=== PATIENT | male | born 1970 | race Caucasian/White ===

== ENCOUNTER 2017-07-19 21:30 | Inpatient (IN) | payer OTHER ==
[~2017-07-19] VITALS: Ht 167.6 cm; Wt 102.5 kg
[2017-07-19] MEDS ORDERED: ONDANSETRON INJ 2 MG/ML 2 ML VIAL IV STA (21:59)
[2017-07-19] MEDS ORDERED: MoRPHine SULFATE 4 MG/ML 1 ML CARP\\VIAL IV STA (21:59)
[2017-07-19 22:13] LABS: BASO % 0.2 %; BASO ABS # 0.03 K/uL (0-0.2); EOS % 0.9 %; EOS ABS # 0.12 K/uL (0-0.5); HEMOGLOBIN 15.1 g/dL (14.0-18.0); IG# 0.04 K/uL (0.00-0.02); LYMPH % 23.4 %; LYMPH ABS # 3.21 K/uL (1.2-3.4); MEAN CELL VOLUME 87.4 fL (80-100); MEAN CORPUSCULAR HEMOGLOBIN 30.7 pg (25-34); MEAN CORPUSCULAR HGB CONC 35.1 g/dl (32-36); MEAN PLATELET VOLUME 10.9 fL (7.4-10.4); MONO % 7.5 %; MONO ABS # 1.02 K/uL (0.11-0.59); NEUT % 67.7 %; NEUT ABS # 9.27 K/uL (1.4-6.5); PLATELET COUNT 216 K/uL (130-400); RED CELL DISTRIBUTION WIDTH CV 12.5 % (11.5-14.5); RED CELL DISTRIBUTION WIDTH SD 39.8 fL (36.4-46.3); WHITE BLOOD COUNT 13.69 K/uL (4.8-10.8)
[2017-07-19 22:30] LABS: CALCIUM 9.2 mg/dl (8.5-10.1); CREATININE 1.53 mg/dl (0.60-1.40); POTASSIUM 3.9 mmol/L (3.5-5.1)
--- NOTE | 2017-07-19 22:42 | DIAGNOSTIC IMAGING REPORT ---
CT OF THE ABDOMEN AND PELVIS WITHOUT CONTRAST, STONE PROTOCOL CLINICAL HISTORY: Left flank pain. COMPARISON STUDY: None. TECHNIQUE: Helical axial images of the abdomen and pelvis were obtained without IV or oral contrast according to renal stone protocol. A dose lowering technique was utilized adhering to the principles of ALARA. FINDINGS: An 8 mm x 5 mm left ureteropelvic junction calculus results in moderate left hydronephrosis. There is mild perinephric and periureteral infiltration. Bilateral renal lesions are suboptimally assessed on this unenhanced exam but measure near water attenuation which favors cysts. No additional urinary calculi are identified. Low attenuation bilateral adrenal nodules represent adenomas. A few subcentimeter hypodense right hepatic lobe lesions likely reflect cysts. The spleen and pancreas are normal. There is no evidence for a bowel obstruction. The appendix is normal. There is no lymphadenopathy. Pelvic calcifications reflect phleboliths. IMPRESSION: 1. 8 mm x 5 mm left ureteropelvic junction calculus which results in moderate left hydronephrosis and mild perinephric infiltration. 2. Bilateral renal lesions which are suboptimally assessed on this unenhanced exam but measure near water attenuation which favors cysts. 3. Bilateral adrenal adenomas. Electronically signed by: Alexandre Dao M.D. 07/19/2017 10:40 PM Dictated Date/Time: 07/19/2017 10:33 PM
[2017-07-19] MEDS ORDERED: SODIUM CHLORIDE 0.9% 1000ML 1,000 ML IV STA (22:54)
[2017-07-19] MEDS ORDERED: KETOROLAC TROMETHAMINE 30 MG/ML VIAL IV STA (22:54)
[2017-07-19] MEDS ORDERED: LISI-725 PO (23:07)
[2017-07-19] MEDS ORDERED: CYAN100020 PO (23:07)
[2017-07-19] MEDS ORDERED: ATOR-22 PO (23:07)
[2017-07-19] MEDS ORDERED: ASCO10003 PO (23:07)
[2017-07-19] MEDS ORDERED: ASPI81TA28 PO (23:07)
--- NOTE | 2017-07-20 00:21 | History and Physical ---
History & Physical Date & Time of Service: Jul 20, 2017 at 00:21 Chief Complaint: Back Pain L Side Thinks Kidney Primary Care Physician: Kali Pabon PA-C History of Present Illness Source: patient, family Patient is a 46-year-old male with past medical history of hypertension, hyperlipidemia, former tobacco use and other problems presents with history of sudden onset of left flank pain which started at 8:30 PM today. He reports left flank pain is radiating to the left lower quadrant, sharp to crampy in nature, 9/10 intensity, associated with chills, 2 episodes of non bloody nausea and vomiting since this morning. Denies any aggravating and relieving factors. Patient also noticed cola colored urine 2 days ago which improved with increased water intake. Denies any history of kidney stones in the past. He also noticed decreased urinary stream and increased urinary frequency since yesterday. Denies any history of chest pain, SOB, dizziness, pedal edema, cough , fever, headache, blood in stools, diarrhea, dysuria. Past Medical/Surgical History Medical Problems: (1) High cholesterol (2) Hypertension (3) Renal colic Family History FH: peptic ulcer disease FATHER Kidney disease MOTHER Kidney stones MOTHER Thromboembolic disease MOTHER Reviewed as above Social History Smoking Status: Former Smoker Alcohol Use: none Drug Use: none Allergies Coded Allergies: No Known Allergies (Unverified , 07/20/17) Home Medications Scheduled Ascorbic Acid (Vitamin C), 1,000 MG PO DAILY Aspirin (Aspirin Ec), 81 MG PO DAILY Atorvastatin (Lipitor), 20 MG PO DAILY Cyanocobalamin (Vitamin B12), 1,000 MCG PO DAILY Lisinopril (Zestril), 20 MG PO BID Review of Systems See HPI for pertinent positives & negatives. A total of 10 systems reviewed and were otherwise negative. Physical Exam Vital Signs Date Time Temp Pulse Resp B/P (MAP) Pulse Ox O2 Delivery O2 Flow Rate FiO2 07/20/17 00:16 87 18 151/90 97 Room Air 07/19/17 23:08 56 18 172/94 97 Room Air 07/19/17 22:50 55 07/19/17 21:49 36.4 58 18 154/65 97 Room Air General Appearance: WD/WN, no apparent distress Head: normocephalic, atraumatic Eyes: normal inspection, PERRL, EOMI, sclerae normal ENT: normal ENT inspection, hearing grossly normal Neck: supple, trachea midline Respiratory/Chest: chest non-tender, lungs clear, normal breath sounds, no respiratory distress, no accessory muscle use Cardiovascular: regular rate, rhythm, no edema, no murmur Abdomen/GI: normal bowel sounds, soft, + tenderness (Left flank and LLQ) Back: normal inspection Extremities/Musculoskelatal: normal inspection, no pedal edema Neurologic/Psych: window draper II-XII nml as tested, no motor/sensory deficits, alert, normal mood/affect, oriented x 3 Skin: normal color, warm/dry Diagnostics Laboratory Results Results Past 24 Hours Test 07/19/17 22:02 07/19/17 23:05 Range/Units White Blood Count 13.69 4.8-10.8 K/uL Red Blood Count 4.92 4.7-6.1 M/uL Hemoglobin 15.1 14.0-18.0 g/dL Hematocrit 43.0 42-52 % Mean Corpuscular Volume 87.4 80-100 fL Mean Corpuscular Hemoglobin 30.7 25-34 pg Mean Corpuscular Hemoglobin Concent 35.1 32-36 g/dl Platelet Count 216 130-400 K/uL Mean Platelet Volume 10.9 7.4-10.4 fL Neutrophils (%) (Auto) 67.7 % Lymphocytes (%) (Auto) 23.4 % Monocytes (%) (Auto) 7.5 % Eosinophils (%) (Auto) 0.9 % Basophils (%) (Auto) 0.2 % Neutrophils # (Auto) 9.27 1.4-6.5 K/uL Lymphocytes # (Auto) 3.21 1.2-3.4 K/uL Monocytes # (Auto) 1.02 0.11-0.59 K/uL Eosinophils # (Auto) 0.12 0-0.5 K/uL Basophils # (Auto) 0.03 0-0.2 K/uL RDW Standard Deviation 39.8 36.4-46.3 fL RDW Coefficient of Variation 12.5 11.5-14.5 % Immature Granulocyte % (Auto) 0.3 % Immature Granulocyte # (Auto) 0.04 0.00-0.02 K/uL Sodium Level 136 136-145 mmol/L Potassium Level 3.9 3.5-5.1 mmol/L Chloride Level 104 98-107 mmol/L Carbon Dioxide Level 26 21-32 mmol/L Anion Gap 6.0 3-11 mmol/L Blood Urea Nitrogen 19 7-18 mg/dl Creatinine 1.53 0.60-1.40 mg/dl Est Creatinine Clear Calc Drug Dose 51.4 ml/min Estimated GFR () 62.7 Estimated GFR (Non- 54.1 BUN/Creatinine Ratio 12.1 10-20 Random Glucose 224 70-99 mg/dl Calcium Level 9.2 8.5-10.1 mg/dl Total Bilirubin 0.4 0.2-1 mg/dl Direct Bilirubin 0.1 0-0.2 mg/dl Aspartate Amino Transf (AST/SGOT) 35 15-37 U/L Alanine Aminotransferase (ALT/SGPT) 78 12-78 U/L Alkaline Phosphatase 98 45-117 U/L Total Protein 8.0 6.4-8.2 gm/dl Albumin 4.0 3.4-5.0 gm/dl Lipase 108 73-393 U/L Urine Color YELLOW Urine Appearance TURBID CLEAR Urine pH 5.0 4.5-7.5 Urine Specific [place] 1.033 1.000-1.030 Urine Protein TRACE NEG Urine Glucose (UA) NEG NEG Urine Ketones NEG NEG Urine Occult Blood 3+ NEG Urine Nitrite NEG NEG Urine Bilirubin NEG NEG Urine Urobilinogen NEG NEG Urine Leukocyte Esterase NEG NEG Urine WBC (Auto) 1-5 0-5 /hpf Urine RBC (Auto) 10-30 0-4 /hpf Urine Hyaline Casts (Auto) 1-5 0-5 /lpf Urine Epithelial Cells (Auto) 0-5 0-5 /lpf Urine Bacteria (Auto) NEG NEG Urine Crystals CALCIUM OXALATE NONE PRSENT Urine Mucus PRESENT NONE PRSENT Urine Yeast (Auto) NONE PRSENT Diagnostic Radiology CT ABD: 1. 8 mm x 5 mm left ureteropelvic junction calculus which results in moderate left hydronephrosis and mild perinephric infiltration. 2. Bilateral renal lesions which are suboptimally assessed on this unenhanced exam but measure near water attenuation which favors cysts. 3. Bilateral adrenal adenomas. Impression Assessment and Plan Renal Colic: Obstructive Uropathy: CT abdomen showed: 8 mm x 5 mm left ureteropelvic junction calculus which results in moderate left hydronephrosis and mild perinephric infiltration. No signs of Sepsis IV fluids Start on Flomax Urology consulted Strain Urine NPO for possible intervention Pain control MARIO: secondary to above No known kidney disease Unknown baseline Creatinine Cr:1.53 Hold lisinopril Monitor renal function Avoid nephrotoxic agents Bilateral renal lesions: likely cysts. Bilateral adrenal adenomas Incidental findings on CT scan Work up as outpatient Elevated Glucose levels No known H/O diabetes Check A1C Started on ISS for now monitor blood glucose levels Hypertension: Elevated likely situational Hold lisinopril secondary to MARIO started on amlodipine Hyperlipidemia: continue statins DVT Px: SCDs Code Status: Full Code Resuscitation Status VTE Prophylaxis Will order VTE Prophylaxis: Yes
[2017-07-20] MEDS ORDERED: TAMSULOSIN HCL 0.4 MG CAP PO STA (00:29)
[2017-07-20] MEDS ORDERED: GLUCAGON FOR INJ 1 MG VIAL SQ PRN (00:30)
[2017-07-20] MEDS ORDERED: GLUCOSE 40% GEL 15 GM TUBE PO PRN (00:30)
[2017-07-20] MEDS ORDERED: DEXTROSE 50% 50 ML SYR IV PRN (00:30)
[2017-07-20] MEDS ORDERED: GLUCOSE 10 TABS/TUBE PO PRN (00:30)
[2017-07-20] MEDS ORDERED: ACETAMINOPHEN 325 MG TAB PO PRN (00:30)
[2017-07-20] MEDS ORDERED: MoRPHine SULFATE 2 MG/ML CARP IV PRN (00:30)
[2017-07-20] MEDS ORDERED: ONDANSETRON INJ 2 MG/ML 2 ML VIAL IV PRN ×2 (00:30→10:45)
--- NOTE | 2017-07-20 01:10 | EMERGENCY ROOM VISIT NOTE ---
History Report prepared by Charity: Lauren Quintanilla Under the Supervision of: Dr. Avrind Blanchard M.D. First contact with patient: 21:56 Chief Complaint: FLANK PAIN Stated Complaint: BACK PAIN L SIDE THINKS KIDNEY History of Present Illness The patient is a 46 year old male who presents to the Emergency Room with complaints of persistent left flank pain starting 2029. The pain started suddenly. He describes it as sharp. He is having trouble getting comfortable. The pain does not worsen with movement. He is vomiting and diaphoretic. He notes that he had some dark urine like cola 2 days ago. He has a family history of kidney stone. He has a history of hypertension and high cholesterol. Source of History: patient Onset: 2029 Position: other (left flank) Quality: sharp Timing: other (persistent) Associated Symptoms: + diaphoresis, + vomiting, + urinary symptoms Review of Systems See HPI for pertinent positives & negatives. A total of 10 systems reviewed and were otherwise negative. Past Medical & Surgical Medical Problems: (1) High cholesterol (2) Hypertension Family History Kidney stones Social History Smoking Status: Former Smoker Marital Status: Housing Status: lives with family Occupation Status: employed Current/Historical Medications Scheduled Ascorbic Acid (Vitamin C), 1,000 MG PO DAILY Aspirin (Aspirin Ec), 81 MG PO DAILY Atorvastatin (Lipitor), 20 MG PO DAILY Cyanocobalamin (Vitamin B12), 1,000 MCG PO DAILY Lisinopril (Zestril), 20 MG PO BID Allergies Coded Allergies: No Known Allergies (Unverified , 07/20/17) Physical Exam Vital Signs Date Time Temp Pulse Resp B/P (MAP) Pulse Ox O2 Delivery O2 Flow Rate FiO2 07/20/17 00:16 87 18 151/90 97 Room Air 07/19/17 23:08 56 18 172/94 97 Room Air 07/19/17 22:50 55 07/19/17 21:49 36.4 58 18 154/65 97 Room Air Physical Exam The patient appears in obvious discomfort. Constitutional: Vital signs reviewed. Eyes: Pupils are equal round reactive to light. Conjunctiva are noninjected. ENT: Pharynx is clear without erythema or exudate. Mucous membranes are moist. Neck supple without meningeal signs. Respiratory: Clear to auscultation bilaterally. Breath sounds are equal bilaterally. Cardiovascular: Regular rate and rhythm. No rubs or gallops. GI: Soft, nondistended and nontender. Bowel sounds are present. Musculoskeletal: No peripheral edema. Integumentary: Diaphoretic. No cyanosis. Neurological: The patient is awake and alert. No focal deficits. Psychiatric: Normal affect. Medical Decision & Procedures ER Provider Diagnostic Interpretation: Radiology results as stated below per my review and the radiologist's interpretation: CT OF THE ABDOMEN AND PELVIS WITHOUT CONTRAST, STONE PROTOCOL CLINICAL HISTORY: Left flank pain. COMPARISON STUDY: None. TECHNIQUE: Helical axial images of the abdomen and pelvis were obtained without IV or oral contrast according to renal stone protocol. A dose lowering technique was utilized adhering to the principles of ALARA. FINDINGS: An 8 mm x 5 mm left ureteropelvic junction calculus results in moderate left hydronephrosis. There is mild perinephric and periureteral infiltration. Bilateral renal lesions are suboptimally assessed on this unenhanced exam but measure near water attenuation which favors cysts. No additional urinary calculi are identified. Low attenuation bilateral adrenal nodules represent adenomas. A few subcentimeter hypodense right hepatic lobe lesions likely reflect cysts. The spleen and pancreas are normal. There is no evidence for a bowel obstruction. The appendix is normal. There is no lymphadenopathy. Pelvic calcifications reflect phleboliths. IMPRESSION: 1. 8 mm x 5 mm left ureteropelvic junction calculus which results in moderate left hydronephrosis and mild perinephric infiltration. 2. Bilateral renal lesions which are suboptimally assessed on this unenhanced exam but measure near water attenuation which favors cysts. 3. Bilateral adrenal adenomas. Electronically signed by: Alexandre Dao M.D. 07/19/2017 10:40 PM Dictated Date/Time: 07/19/2017 10:33 PM Laboratory Results 07/19/17 22:02 Red Blood Count 4.92, Mean Corpuscular Volume 87.4, Mean Corpuscular Hemoglobin 30.7, Mean Corpuscular Hemoglobin Concent 35.1, Mean Platelet Volume 10.9, Neutrophils (%) (Auto) 67.7, Lymphocytes (%) (Auto) 23.4, Monocytes (%) (Auto) 7.5, Eosinophils (%) (Auto) 0.9, Basophils (%) (Auto) 0.2, Neutrophils # (Auto) 9.27, Lymphocytes # (Auto) 3.21, Monocytes # (Auto) 1.02, Eosinophils # (Auto) 0.12, Basophils # (Auto) 0.03 07/19/17 22:02 Test 07/19/17 22:02 07/19/17 23:05 White Blood Count 13.69 K/uL (4.8-10.8) Red Blood Count 4.92 M/uL (4.7-6.1) Hemoglobin 15.1 g/dL (14.0-18.0) Hematocrit 43.0 % (42-52) Mean Corpuscular Volume 87.4 fL (80-100) Mean Corpuscular Hemoglobin 30.7 pg (25-34) Mean Corpuscular Hemoglobin Concent 35.1 g/dl (32-36) Platelet Count 216 K/uL (130-400) Mean Platelet Volume 10.9 fL (7.4-10.4) Neutrophils (%) (Auto) 67.7 % Lymphocytes (%) (Auto) 23.4 % Monocytes (%) (Auto) 7.5 % Eosinophils (%) (Auto) 0.9 % Basophils (%) (Auto) 0.2 % Neutrophils # (Auto) 9.27 K/uL (1.4-6.5) Lymphocytes # (Auto) 3.21 K/uL (1.2-3.4) Monocytes # (Auto) 1.02 K/uL (0.11-0.59) Eosinophils # (Auto) 0.12 K/uL (0-0.5) Basophils # (Auto) 0.03 K/uL (0-0.2) RDW Standard Deviation 39.8 fL (36.4-46.3) RDW Coefficient of Variation 12.5 % (11.5-14.5) Immature Granulocyte % (Auto) 0.3 % Immature Granulocyte # (Auto) 0.04 K/uL (0.00-0.02) Anion Gap 6.0 mmol/L (3-11) Est Creatinine Clear Calc Drug Dose 51.4 ml/min Estimated GFR () 62.7 Estimated GFR (Non- 54.1 BUN/Creatinine Ratio 12.1 (10-20) Calcium Level 9.2 mg/dl (8.5-10.1) Total Bilirubin 0.4 mg/dl (0.2-1) Direct Bilirubin 0.1 mg/dl (0-0.2) Aspartate Amino Transf (AST/SGOT) 35 U/L (15-37) Alanine Aminotransferase (ALT/SGPT) 78 U/L (12-78) Alkaline Phosphatase 98 U/L (45-117) Total Protein 8.0 gm/dl (6.4-8.2) Albumin 4.0 gm/dl (3.4-5.0) Lipase 108 U/L (73-393) Urine Color YELLOW Urine Appearance TURBID (CLEAR) Urine pH 5.0 (4.5-7.5) Urine Specific [place] 1.033 (1.000-1.030) Urine Protein TRACE (NEG) Urine Glucose (UA) NEG (NEG) Urine Ketones NEG (NEG) Urine Occult Blood 3+ (NEG) Urine Nitrite NEG (NEG) Urine Bilirubin NEG (NEG) Urine Urobilinogen NEG (NEG) Urine Leukocyte Esterase NEG (NEG) Urine WBC (Auto) 1-5 /hpf (0-5) Urine RBC (Auto) 10-30 /hpf (0-4) Urine Hyaline Casts (Auto) 1-5 /lpf (0-5) Urine Epithelial Cells (Auto) 0-5 /lpf (0-5) Urine Bacteria (Auto) NEG (NEG) Urine Crystals CALCIUM OXALATE (NONE Urine Mucus PRESENT (NONE PRSENT) Urine Yeast (Auto) (NONE PRSENT) Laboratory results as reviewed by me. Medications Administered Medications (Trade) Dose Ordered Sig/Evaristo Route Start Time Stop Time Status Last Admin Dose Admin Morphine Sulfate (MoRPHine SULFATE INJ) 4 mg ONE STAT IV 07/19/17 21:59 07/19/17 22:00 DC 07/19/17 22:12 4 MG Ondansetron HCl (Zofran Inj) 4 mg NOW STAT IV 07/19/17 21:59 07/19/17 22:00 DC 07/19/17 22:11 4 MG Ketorolac Tromethamine (Toradol Inj) 10 mg NOW STAT IV 07/19/17 22:54 07/19/17 22:56 DC 07/19/17 23:08 10 MG Sodium Chloride 1,000 ml @ 999 mls/hr Q1H1M STAT IV 07/19/17 22:54 07/19/17 23:54 DC 07/19/17 23:07 999 MLS/HR ED Course 1287: The patient was evaluated in room A2. A complete history and physical exam was performed. 2158: Zofran Inj 4 mg IV, Morphine Sulfate 4 mg IV. 4: Sodium Chloride 1000 ml @ 999 mls/hr IV, Toradol Inj 10 mg IV. 2251: I reevaluated the patient. He is still having pain. I updated him on the test results. 2335: I reevaluated the patient. He is still having pain. I updated him on the results. After further discussion, the patient will stay for pain control and further management. 2343: I discussed the patient's case with Dr. Newman, [facility] hospitalist. He will evaluate the patient for further management. Medical Decision This is a 46-year-old male who presents with left flank pain. Differential diagnosis includes kidney stone, hydronephrosis, UTI, strain, diverticulitis, pancreatitis. I did perform a limited focused review of portions of the patient 's old chart on the electronic medical record. The patient has had no prior visits to this hospital. I did evaluate the patient as noted above. IV access was established. I did treat patient with IV morphine and Zofran. I did order and personally review the patient's urine analysis as described above. I did order and review the patient's blood work as noted in the electronic medical record. His white blood cell count is slightly elevated. Creatinine is slightly elevated. I did treat the patient with normal saline IV. I did order a CT of the abdomen and pelvis. I did review the images myself as well as the radiology report as described above. He does have an 8 x 5 mm obstructive left ureteral stone with hydronephrosis. I did discuss the test results with the patient. I did reassess him. He states that he still has continued pain. He was reluctant to have more narcotics at this time so I did treat him with Toradol 10 mg IV. On reassessment he states he does feel somewhat better but still has the pain. Given the size of his stone and his continued pain I did feel hospitalization was indicated. I did discuss the case with the hospitalist and home health care case manager. I did forget to mention the incidental findings regarding his adrenal glands and kidney cysts with him and so I did ask the hospitalist to discuss this with him. Medication Reconcilliation Current Medication List: was personally reviewed by me Blood Pressure Screening Patient's blood pressure: Elevated blood pressure Blood pressure disposition: Referred to PCP Consults Time Called: [phone] [facility]ing [facility] Returned Call: [phone] I discussed the patient's case with him. He will evaluate the patient for further management. Impression Primary Impression: Renal colic Additional Impression: Obstructive uropathy Scribe Attestation The scribe's documentation has been prepared under my direct and personally reviewed by me in its entirety. I confirm that the note above accurately reflects all work, treatment, procedures, and medical decision making performed by me. Departure Information Dispostion Being Evaluated By Hospitalist Referrals Kali Pabon PA-C (PCP) Patient Instructions My [facility] Problem Qualifiers
[2017-07-20] MEDS ORDERED: SODIUM CHLORIDE 0.9% 1000ML 1,000 ML IV SCH (02:15)
[2017-07-20 02:27] VITALS: BP 119/75; PULSE 92; TEMP 37.3; O2SAT 92; Ht 167.6 cm; Wt 102.5 kg
[2017-07-20] MEDS ORDERED: NURSING DECISION MEDICATION ORDER SCH (03:00)
[2017-07-20] MEDS: INSULIN ASPART 100 UNITS/ML 3 ML PEN SC SCH ×2 (05:38→12:00)
[2017-07-20] MEDS ORDERED: INSULIN ASPART 100 UNITS/ML 3 ML PEN SC SCH (07:00)
[2017-07-20 07:08] VITALS: BP 120/69; PULSE 74; TEMP 36.8; O2SAT 93
[2017-07-20 07:21] LABS: HEMOGLOBIN 13.4 g/dL (14.0-18.0); MEAN CELL VOLUME 88.2 fL (80-100); MEAN CORPUSCULAR HEMOGLOBIN 30.3 pg (25-34); MEAN CORPUSCULAR HGB CONC 34.4 g/dl (32-36); MEAN PLATELET VOLUME 10.9 fL (7.4-10.4); PLATELET COUNT 179 K/uL (130-400); RED CELL DISTRIBUTION WIDTH CV 12.5 % (11.5-14.5); RED CELL DISTRIBUTION WIDTH SD 40.2 fL (36.4-46.3); WHITE BLOOD COUNT 11.85 K/uL (4.8-10.8)
--- NOTE | 2017-07-20 07:39 | Urology Consultation ---
History General Date of Service: Jul 20, 2017. Chief Complaint: left flank pain Primary Care Physician: Kali Pabon PA-C Pt seen a urologist before?: No History of Present Illness 46 yo male presents to [facility] with c/o left flank pain that started yesterday. The pain was accompanied by n/v. CT scan showing an 8mm left UPJ stone. The pt has no previous hx of stones. Pt reports chills after admission, but no fevers noted. Denies dysuria or hematuria, but he does note that his urine was dark 2 days ago. Pain this morning was a 2-3/10 increasing to 6/10 during our visit this morning. Imaging Imaging: CT Laboratory Last 24 Hours Test 07/19/17 22:02 07/19/17 23:05 07/20/17 05:35 07/20/17 07:06 White Blood Count 13.69 K/uL 11.85 K/uL Red Blood Count 4.92 M/uL 4.42 M/uL Hemoglobin 15.1 g/dL 13.4 g/dL Hematocrit 43.0 % 39.0 % Mean Corpuscular Volume 87.4 fL 88.2 fL Mean Corpuscular Hemoglobin 30.7 pg 30.3 pg Mean Corpuscular Hemoglobin Concent 35.1 g/dl 34.4 g/dl Platelet Count 216 K/uL 179 K/uL Mean Platelet Volume 10.9 fL 10.9 fL Neutrophils (%) (Auto) 67.7 % Lymphocytes (%) (Auto) 23.4 % Monocytes (%) (Auto) 7.5 % Eosinophils (%) (Auto) 0.9 % Basophils (%) (Auto) 0.2 % Neutrophils # (Auto) 9.27 K/uL Lymphocytes # (Auto) 3.21 K/uL Monocytes # (Auto) 1.02 K/uL Eosinophils # (Auto) 0.12 K/uL Basophils # (Auto) 0.03 K/uL RDW Standard Deviation 39.8 fL 40.2 fL RDW Coefficient of Variation 12.5 % 12.5 % Immature Granulocyte % (Auto) 0.3 % Immature Granulocyte # (Auto) 0.04 K/uL Sodium Level 136 mmol/L Potassium Level 3.9 mmol/L Chloride Level 104 mmol/L Carbon Dioxide Level 26 mmol/L Anion Gap 6.0 mmol/L Blood Urea Nitrogen 19 mg/dl Creatinine 1.53 mg/dl Est Creatinine Clear Calc Drug Dose 51.4 ml/min Estimated GFR () 62.7 Estimated GFR (Non- 54.1 BUN/Creatinine Ratio 12.1 Random Glucose 224 mg/dl Calcium Level 9.2 mg/dl Total Bilirubin 0.4 mg/dl Direct Bilirubin 0.1 mg/dl Aspartate Amino Transf (AST/SGOT) 35 U/L Alanine Aminotransferase (ALT/SGPT) 78 U/L Alkaline Phosphatase 98 U/L Total Protein 8.0 gm/dl Albumin 4.0 gm/dl Lipase 108 U/L Urine Color YELLOW Urine Appearance TURBID Urine pH 5.0 Urine Specific [place] 1.033 Urine Protein TRACE Urine Glucose (UA) NEG Urine Ketones NEG Urine Occult Blood 3+ Urine Nitrite NEG Urine Bilirubin NEG Urine Urobilinogen NEG Urine Leukocyte Esterase NEG Urine WBC (Auto) 1-5 /hpf Urine RBC (Auto) 10-30 /hpf Urine Hyaline Casts (Auto) 1-5 /lpf Urine Epithelial Cells (Auto) 0-5 /lpf Urine Bacteria (Auto) NEG Urine Crystals CALCIUM OXALATE Urine Mucus PRESENT Urine Yeast (Auto) Bedside Glucose 117 mg/dl Problem List Medical Problems: (1) Obstructive uropathy Status: Acute (2) Renal colic Status: Acute Past History high cholesterol, hypertension Past Surgical History: orthopedic surgery (knee surgery), other (hernia surgery ) Family History FH: peptic ulcer disease FATHER Kidney disease MOTHER Kidney stones MOTHER Thromboembolic disease MOTHER Social History Hx Tobacco Use In Past Year?: No Smoking: other (former smoker) Alcohol: never Drug use: none Marital status: Housing status: lives with family Occupation status: employed Allergies Coded Allergies: No Known Allergies (Unverified , 07/20/17) Medications Home Medications: Home Meds and Scripts Medications Dose Route/Sig Max Daily Dose Days Date Category Vitamin C (Ascorbic Acid) 1,000 Mg Tab 1,000 Mg PO DAILY 07/19/17 Reported Vitamin B12 (Cyanocobalamin) 1,000 Mcg Tab 1,000 Mcg PO DAILY 07/19/17 Reported Aspirin Ec (Aspirin) 81 Mg Tab 81 Mg PO DAILY 07/19/17 Reported Lipitor (Atorvastatin Calcium) 20 Mg Tab 20 Mg PO DAILY 07/19/17 Reported Zestril (Lisinopril) 20 Mg Tab 20 Mg PO BID 07/19/17 Reported Inpatient Medications: Current Inpatient Medications Medications (Trade) Dose Ordered Sig/Evaristo Route Start Time Stop Time Status Last Admin Dose Admin Acetaminophen (Tylenol Tab) 650 mg Q4H PRN PO 07/20/17 00:30 08/19/17 00:29 Ondansetron HCl (Zofran Inj) 4 mg Q6H PRN IV 07/20/17 00:30 08/19/17 00:29 Sodium Chloride 1,000 ml @ 80 mls/hr [id number] IV 07/20/17 02:15 08/19/17 02:14 07/20/17 02:35 80 MLS/HR Morphine Sulfate (MoRPHine SULFATE INJ) 2 mg Q3H PRN IV 07/20/17 00:30 08/03/17 00:29 Tamsulosin HCl (Flomax Cap) 0.4 mg HS PO 07/20/17 21:00 08/19/17 20:59 Amlodipine Besylate (Norvasc Tab) 10 mg QAM PO 07/20/17 09:00 08/19/17 08:59 Atorvastatin Calcium (Lipitor Tab) 20 mg DAILY PO 07/20/17 09:00 08/19/17 08:59 Glucose (Glucose 40% Gel) 15-30 GRAMS 15 GRAMS... UD PRN PO 07/20/17 00:30 08/19/17 00:29 Glucose (Glucose Chew Tab) 4-8 Tablets 4 Tabl... UD PRN PO 07/20/17 00:30 08/19/17 00:29 Dextrose (Dextrose 50% 50ML Syringe) 25-50ML OF 50% DW IV FOR... UD PRN IV 07/20/17 00:30 08/19/17 00:29 Glucagon (Glucagon Inj) 1 mg UD PRN SQ 07/20/17 00:30 08/19/17 00:29 Insulin Aspart (novoLOG ASPART) SLIDING SCALE If C... Q6 SC 07/20/17 06:00 08/19/17 05:59 Review of Systems Review of Systems Constitutional: No fever, No chills Eyes: No double vision Neurological: No dizzy Endocrine: No excessive thirst Gastrointestinal: No abdominal pain, No nausea, No vomiting Cardiovascular: No chest pain Respiratory: No shortness of breath Skin: No rash Musculoskeletal: + back pain (left low back ) Male : No painful urination, No blood in urine Physical Exam Vital Signs: Vital Signs Past 12 Hours Date Time Temp Pulse Resp B/P (MAP) Pulse Ox O2 Delivery O2 Flow Rate FiO2 07/20/17 02:27 37.3 92 16 119/75 92 Room Air 07/20/17 01:41 91 20 135/71 98 07/20/17 01:20 91 20 135/71 98 Room Air 07/20/17 00:16 87 18 151/90 97 Room Air 07/19/17 23:08 56 18 172/94 97 Room Air 07/19/17 22:50 55 07/19/17 21:49 36.4 58 18 154/65 97 Room Air Physical Exam: General Appearance: no apparent distress Eyes: bilateral eyes normal inspection ENT: hearing grossly normal Neck: no JVD Respiratory/Chest: no respiratory distress, no accessory muscle use Cardiovascular: no JVD Extremities: normal inspection Neurologic/Psychiatric: alert, normal mood/affect, oriented x 3 Skin: normal color Assessment & Plan Assessment & Plan Treatment Planned: cystoscopy w/ stent A/P: 8mm left UPJ stone AFVSS. Treatment options discussed with the pt today have included a trial of passage with MET vs cysto with left ureteral stent placement. The pt prefers a cysto with left ureteral stent placement this morning. Risks and benefits of the procedure discussed with the pt. All questions answered. Pt agrees to the procedure at this time. He will remain NPO until surgery. Will check a pre-op chest x-ray and EKG. Will order Cipro pre-op. Continue tamsulosin. Strain all urine. Will plan for definitive stone management as an outpatient. Possible ESWL. Will check a KUB for visibility. Thanks for the consult. Will continue to follow along with primary service.
[2017-07-20 07:54] LABS: CALCIUM 8.5 mg/dl (8.5-10.1); CREATININE 1.6 mg/dl (0.60-1.40); POTASSIUM 4.1 mmol/L (3.5-5.1)
[2017-07-20] MEDS ORDERED: CIPROFLOXACIN 400MG / 200ML D5W IV SCH (08:30)
[2017-07-20 08:35] LABS: HEMOGLOBIN A1C 7.4 % (4.5-5.6)
[2017-07-20] MEDS ORDERED: AMLODIPINE BESYLATE 5 MG TAB PO SCH (09:00)
[2017-07-20] MEDS ORDERED: ATORVASTATIN 20 MG TAB PO SCH (09:00)
[2017-07-20] MEDS ORDERED: Cysto-Conray II 17.2% 250ML BOTTLE ONE (10:08)
--- NOTE | 2017-07-20 10:25 | Discharge Instructions ---
Discharge Instructions Date of Service Jul 20, 2017. Admission Reason for Admission: Renal Colic Discharge Discharge Diagnosis / Problem: Left ureteral stone, intractable colic s/p L ureteral stent Discharge Goals Goal(s): Decrease discomfort, Improve function, Improve disease control, Therapeutic intervention Activity Recommendations Activity Limitations: as noted below Lifting Limitations: no more than 25 pounds, gradually increase as tolerated Exercise/Sports Limitations: rest today, gradually increase as tolerated May Resume Sexual Activity: after follow-up appointment Shower/Bathe: no limitations Driving or Machine Use: resume 1 day after discharge . Instructions / Follow-Up Instructions / Follow-Up Follow-up appointment with Dr. Derrell Casanova in [place] office July 28 at 10: 30 AM - you will be mailed new patient paperwork and appointment date. Call with questions. Current Hospital Diet Patient's current hospital diet: Discharge Diet Recommended Diet: Regular Diet (good fluid intake) Procedures Procedures Performed: Cystoscopy, left retrograde pyelography, left ureteral stent placement Pending Studies Studies pending at discharge: no Laboratory Results Hemoglobin A1c Test 07/20/17 07:06 Range/Units Estimated Average Glucose 166 mg/dl Hemoglobin A1c 7.4 H 4.5-5.6 % Medical Emergencies . Who to Call and When: Medical Emergencies: If at any time you feel your situation is an emergency, please call 911 immediately. . Non-Emergent Contact Non-Emergency issues call your: Urologist Call Non-Emergent contact if: you have a fever, temperature is above 101, your pain is not controlled, your pain is worsening, your pain is unusual for you, your pain is concerning you, you have any medication questions . . "Provider Documentation" section prepared by Jose Rafael Casanova. . [place] Drug Monitoring Program Search Results: patient reviewed within database, no issues identified
[2017-07-20] MEDS ORDERED: PHEN-775 PO (10:28)
[2017-07-20] MEDS ORDERED: CIPR-255 PO (10:28)
[2017-07-20] MEDS ORDERED: OXYC7.5T65 PO (10:28)
--- NOTE | 2017-07-20 10:42 | [facility] Operative Report ---
Operative Report Operative Date Jul 20, 2017. Pre-Operative Diagnosis Left Ureteral Stone with intractable colic Post-Operative Diagnosis Same Procedure(s) Performed Cystoscopy, left retrograde pyelography, left ureteral stent placement Surgeon Dr. Jose Rafael Casanova Garment Turner Surgeon(s) None per surgeon Estimated Blood Loss 0 Findings Good stent position after completion of case, radiopaque stone in the left proximal ureter. Specimens None Drains 5 Mosoth[place] 26 cm loop stent on the left-hand side Anesthesia Type General Complication(s) none Disposition no Recovery Room / PACU Indications 46-year-old male here for his initial stone episode with a left 8 mm proximal ureteral stone and intractable renal colic. Please see urology consultation for further details. After discussion of risks and benefits of various forms of management he is decided upon stent placement to manage his symptoms. Intravenous ciprofloxacin provided for antibiotic coverage and SCDs for DVT prophylaxis. Care is discussed with the patient and his today preoperatively. Description of Procedure Patient was properly identified and brought into the operative suite after identification for proper consent of the chart. General anesthesia with laryngeal mask was initiated and patient was prepped and draped in standard fashion for this procedure. Full timeout procedure was followed. 22 Mosotho rigid cystoscope was introduced into the bladder under direct visualization demonstrating a normal urethra and an elevated bladder neck with no lateral lobe hypertrophy or obstruction. Bladder was entered and grade 1-2 trabeculation was present. No intravesical papillary masses, mucosal abnormalities, calculi or other worrisome findings are present. Ureteral orifices were noted to be in the normal anatomic location bilaterally with reflux of normal urine from the right-hand side. Gentle retrograde pyelography was performed on the left-hand side demonstrating a normal caliber ureter up to the site of the patient's stone which was visualized on crack off person imaging. Proximal hydroureteronephrosis, moderate in degree was noted. Sensor tip wire was advanced up to the level of the left renal pelvis without difficulties or resistance followed by a 5 Mosoth[place] 26 cm loop stent with a full coil being present at the level of the renal pelvis and redundant loops being present within the bladder. Hydronephrotic drip was appreciated. Bladder was drained and cystoscope was removed. Anesthesia was reversed the patient was transferred to the recovery room in stable condition. Follow-up instructions: Patient will be stable for discharge home after tolerating p.o. later today. Will provide a prescription for pain medication, Pyridium and ciprofloxacin for outpatient coverage. Patient is instructed to contact our service should he note any fevers, chills, nausea, vomiting or other difficulties in the postoperative period. Outpatient appointment is confirmed for 28 July at 10:30 AM in our [place] office to arrange for definitive stone management. Care is discussed with the patient's family per his request. I attest to the content of the Intraoperative Record and any orders documented therein. Any exceptions are noted below.
[2017-07-20] MEDS ORDERED: EpHEDrine SULFATE INJ 50 MG/ML AMP IV PRN (10:45)
[2017-07-20] MEDS ORDERED: FENTANYL CITRATE INJ 50 MCG/1 ML 2 ML VIAL IV PRN (10:45)
[2017-07-20] MEDS ORDERED: ATROPINE SULFATE 0.1 MG/ML 5ML SYR IV PRN (10:45)
[2017-07-20] MEDS ORDERED: PHENAZOPYRIDINE HCL 100 MG TAB PO PRN (11:00)
[2017-07-20] MEDS ORDERED: PHENAZOPYRIDINE HCL 200 MG TAB PO PRN (11:00)
[2017-07-20] MEDS ORDERED: OXYCODONE/ACETAMINOPHEN 5-325 TAB PO PRN ×2 (11:00)
--- NOTE | 2017-07-20 11:19 | DIAGNOSTIC IMAGING REPORT ---
RETROGRADE INCLUDES KUB CLINICAL HISTORY: 46 years-old Male presenting with CYSTO LT STENT. TECHNIQUE: 8 fluoroscopic image(s) recorded as part of an intraoperative procedure. COMPARISON: CT from the previous day. FINDINGS/IMPRESSION: The left ureter is opacified with contrast. The left renal collecting system was also opacified with contrast, which is distended. A left ureteral stent is noted. Please see surgical report for further details. Dose area product (mGy.cm^2): 3488.1. Fluoroscopy time: 42.6 seconds. Number of fluoroscopic spot images: 0. Electronically signed by: Joo Syed M.D. 07/20/2017 11:18 AM Dictated Date/Time: 07/20/2017 11:16 AM
--- NOTE | 2017-07-20 11:25 | Anesthesiology Progress Note ---
Anesthesia Post Op Note Date & Time Jul 20, 2017 at 11:25 Vital Signs Pain Intensity: 0 Vital Signs Past 12 Hours Date Time Temp Pulse Resp B/P (MAP) Pulse Ox O2 Delivery O2 Flow Rate FiO2 07/20/17 11:24 36.5 07/20/17 11:21 131/58 07/20/17 11:20 84 16 95 07/20/17 11:20 83 16 07/20/17 11:16 121/67 07/20/17 11:15 80 19 93 07/20/17 11:15 80 19 07/20/17 11:11 119/69 07/20/17 11:10 86 17 07/20/17 11:10 86 17 93 07/20/17 11:06 114/70 07/20/17 11:05 91 22 07/20/17 11:05 90 22 93 07/20/17 11:00 91 15 106/64 92 07/20/17 11:00 90 15 07/20/17 10:55 96 14 100/80 95 07/20/17 10:55 97 14 07/20/17 10:50 36.5 99 18 100/80 95 Nasal Cannula 3 07/20/17 07:45 Room Air 07/20/17 07:08 36.8 74 16 120/69 (86) 93 Room Air 07/20/17 02:27 37.3 92 16 119/75 92 Room Air 07/20/17 01:41 91 20 135/71 98 07/20/17 01:20 91 20 135/71 98 Room Air 07/20/17 00:16 87 18 151/90 97 Room Air Notes Mental Status: alert / awake / arousable, participated in evaluation Pt Amnestic to Procedure: Yes Nausea / Vomiting: adequately controlled Pain: adequately controlled Airway Patency, RR, SpO2: stable & adequate BP & HR: stable & adequate Hydration State: stable & adequate Anesthetic Complications: no major complications apparent
[2017-07-20 11:35] VITALS: BP 110/65; PULSE 80; TEMP 36.7; O2SAT 91
[2017-07-20 12:05] VITALS: BP 108/68; PULSE 68; TEMP 36.7; O2SAT 95
[2017-07-20 12:35] VITALS: BP 110/68; PULSE 76; O2SAT 94
[2017-07-20] MEDS ORDERED: AMLO-110 PO (13:53)
--- NOTE | 2017-07-20 13:53 | Progress Note ---
Medicine Progress Note Date & Time of Visit: Jul 20, 2017 at 13:53 . Subjective Cystoscopy with left ureteral stent placement performed by Dr. Casanova. Doing well postoperatively. No chest pain. No cough or dyspnea. No nausea or vomiting. Postop pain well-controlled. . Objective Last 8 Hrs Date Time Temp Pulse Resp B/P (MAP) Pulse Ox O2 Delivery O2 Flow Rate FiO2 07/20/17 12:35 76 16 110/68 (82) 94 07/20/17 12:05 36.7 68 16 108/68 (81) 95 Room Air 07/20/17 11:35 91 Room Air 07/20/17 11:35 36.7 80 18 110/65 (80) 91 Room Air 07/20/17 11:35 91 Room Air 07/20/17 11:24 36.5 07/20/17 11:21 131/58 07/20/17 11:20 84 16 95 07/20/17 11:20 83 16 07/20/17 11:16 121/67 07/20/17 11:15 80 19 93 07/20/17 11:15 80 19 07/20/17 11:11 119/69 07/20/17 11:10 86 17 07/20/17 11:10 86 17 93 07/20/17 11:06 114/70 07/20/17 11:05 91 22 07/20/17 11:05 90 22 93 07/20/17 11:00 91 15 106/64 92 07/20/17 11:00 90 15 07/20/17 10:55 96 14 100/80 95 07/20/17 10:55 97 14 07/20/17 10:50 36.5 99 18 100/80 95 Nasal Cannula 3 07/20/17 07:45 Room Air 07/20/17 07:08 36.8 74 16 120/69 (86) 93 Room Air Physical Exam: General- no distress Lungs- clear to auscultation; no respiratory distress Cardiovascular- RRR; no murmur; no gallop; no JVD; no pretibial edema Abdomen- + bowel sounds, soft, nontender Extremities- no cyanosis; no calf tenderness Neuro- alert, oriented Skin- warm & dry . Laboratory Results: Last 24 Hours Test 07/19/17 22:02 07/19/17 23:05 07/20/17 05:35 07/20/17 07:06 White Blood Count 13.69 K/uL 11.85 K/uL Red Blood Count 4.92 M/uL 4.42 M/uL Hemoglobin 15.1 g/dL 13.4 g/dL Hematocrit 43.0 % 39.0 % Mean Corpuscular Volume 87.4 fL 88.2 fL Mean Corpuscular Hemoglobin 30.7 pg 30.3 pg Mean Corpuscular Hemoglobin Concent 35.1 g/dl 34.4 g/dl Platelet Count 216 K/uL 179 K/uL Mean Platelet Volume 10.9 fL 10.9 fL Neutrophils (%) (Auto) 67.7 % Lymphocytes (%) (Auto) 23.4 % Monocytes (%) (Auto) 7.5 % Eosinophils (%) (Auto) 0.9 % Basophils (%) (Auto) 0.2 % Neutrophils # (Auto) 9.27 K/uL Lymphocytes # (Auto) 3.21 K/uL Monocytes # (Auto) 1.02 K/uL Eosinophils # (Auto) 0.12 K/uL Basophils # (Auto) 0.03 K/uL RDW Standard Deviation 39.8 fL 40.2 fL RDW Coefficient of Variation 12.5 % 12.5 % Immature Granulocyte % (Auto) 0.3 % Immature Granulocyte # (Auto) 0.04 K/uL Sodium Level 136 mmol/L 137 mmol/L Potassium Level 3.9 mmol/L 4.1 mmol/L Chloride Level 104 mmol/L 107 mmol/L Carbon Dioxide Level 26 mmol/L 22 mmol/L Anion Gap 6.0 mmol/L 8.0 mmol/L Blood Urea Nitrogen 19 mg/dl 24 mg/dl Creatinine 1.53 mg/dl 1.60 mg/dl Est Creatinine Clear Calc Drug Dose 51.4 ml/min 65.4 ml/min Estimated GFR () 62.7 59.4 Estimated GFR (Non- 54.1 51.3 BUN/Creatinine Ratio 12.1 14.7 Random Glucose 224 mg/dl 133 mg/dl Calcium Level 9.2 mg/dl 8.5 mg/dl Total Bilirubin 0.4 mg/dl Direct Bilirubin 0.1 mg/dl Aspartate Amino Transf (AST/SGOT) 35 U/L Alanine Aminotransferase (ALT/SGPT) 78 U/L Alkaline Phosphatase 98 U/L Total Protein 8.0 gm/dl Albumin 4.0 gm/dl Lipase 108 U/L Urine Color YELLOW Urine Appearance TURBID Urine pH 5.0 Urine Specific [place] 1.033 Urine Protein TRACE Urine Glucose (UA) NEG Urine Ketones NEG Urine Occult Blood 3+ Urine Nitrite NEG Urine Bilirubin NEG Urine Urobilinogen NEG Urine Leukocyte Esterase NEG Urine WBC (Auto) 1-5 /hpf Urine RBC (Auto) 10-30 /hpf Urine Hyaline Casts (Auto) 1-5 /lpf Urine Epithelial Cells (Auto) 0-5 /lpf Urine Bacteria (Auto) NEG Urine Crystals CALCIUM OXALATE Urine Mucus PRESENT Urine Yeast (Auto) Bedside Glucose 117 mg/dl Estimated Average Glucose 166 mg/dl Hemoglobin A1c 7.4 % Magnesium Level 2.4 mg/dl Assessment & Plan LEFT URETERAL CALCULUS Presented to ED with left flank pain. CT demonstrated 8.5 mm left ureteral calculus with moderate hydronephrosis and mild perinephric infiltration. Received IV fluids, analgesics. Urology consulted. Cystoscopy with left ureteral stent placement performed by Dr. Casanova. ACUTE KIDNEY INJURY Serum creatinine on admission was 1.53. No history of chronic kidney disease. Acute kidney injury most likely secondary to left ureteral obstruction with hydronephrosis. Lisinopril discontinued. Advised to avoid nonsteroidal anti-inflammatory drugs. Follow. HYPERTENSION Lisinopril discontinued because of acute kidney injury. Discharged on amlodipine 5 mg daily. Follow and titrate therapy. HYPERGLYCEMIA Random glucose in ED was 224. No history of diabetes mellitus. Fasting blood sugar this morning 133. Hemoglobin A1c 7.4. Probably has diabetes mellitus type 2. Diet, exercise, weight loss, and follow-up with PCP recommended. VTE PROPHYLAXIS SCDs ordered. Ambulating. DISPOSITION Expected discharge to home. Primary care follow-up with Kali Pabon PA-C. Urology follow-up with Dr. Casanova. . Consultants: Urology with Dr. Casanova. . Procedures: IV fluids IV medications CT abdomen and pelvis Cystoscopy and left ureteral stent placement by Dr. Casanova on 07/20/17 . Current Inpatient Medications: Current Inpatient Medications Medications (Trade) Dose Ordered Sig/Evaristo Route Start Time Stop Time Status Last Admin Dose Admin Acetaminophen (Tylenol Tab) 650 mg Q4H PRN PO 07/20/17 00:30 08/19/17 00:29 Ondansetron HCl (Zofran Inj) 4 mg Q6H PRN IV 07/20/17 00:30 08/19/17 00:29 07/20/17 07:54 4 MG Sodium Chloride 1,000 ml @ 80 mls/hr [id number] IV 07/20/17 02:15 08/19/17 02:14 07/20/17 02:35 80 MLS/HR Morphine Sulfate (MoRPHine SULFATE INJ) 2 mg Q3H PRN IV 07/20/17 00:30 08/03/17 00:29 07/20/17 07:55 2 MG Tamsulosin HCl (Flomax Cap) 0.4 mg HS PO 07/20/17 21:00 08/19/17 20:59 Amlodipine Besylate (Norvasc Tab) 10 mg QAM PO 07/20/17 09:00 08/19/17 08:59 07/20/17 09:24 10 MG Atorvastatin Calcium (Lipitor Tab) 20 mg DAILY PO 07/20/17 09:00 08/19/17 08:59 07/20/17 09:24 20 MG Glucose (Glucose 40% Gel) 15-30 GRAMS 15 GRAMS... UD PRN PO 07/20/17 00:30 08/19/17 00:29 Glucose (Glucose Chew Tab) 4-8 Tablets 4 Tabl... UD PRN PO 07/20/17 00:30 08/19/17 00:29 Dextrose (Dextrose 50% 50ML Syringe) 25-50ML OF 50% DW IV FOR... UD PRN IV 07/20/17 00:30 08/19/17 00:29 Glucagon (Glucagon Inj) 1 mg UD PRN SQ 07/20/17 00:30 08/19/17 00:29 Insulin Aspart (novoLOG ASPART) SLIDING SCALE If C... Q6 SC 07/20/17 06:00 08/19/17 05:59 Fentanyl Citrate (Fentanyl Inj) 50 mcg Q5M PRN IV 07/20/17 10:45 07/20/17 17:00 Ondansetron HCl (Zofran Inj) 4 mg ONE PRN IV 07/20/17 10:45 07/20/17 17:00 Ephedrine Sulfate (EpHEDrine SULFATE INJ) 5 mg Q5M PRN IV 07/20/17 10:45 07/20/17 17:00 Atropine Sulfate (Atropine Sulfate 0.1mg/ml Inj) 0.5 mg Q1M PRN IV 07/20/17 10:45 07/20/17 17:00 Oxycodone/ Acetaminophen (Percocet 5-325mg Tab) 1 tab Q4H PRN PO 07/20/17 11:00 07/21/17 10:59 Oxycodone/ Acetaminophen (Percocet 5-325mg Tab) 2 tab Q4H PRN PO 07/20/17 11:00 07/21/17 10:59 Phenazopyridine HCl (Pyridium Tab) 100 mg TID PRN PO 07/20/17 11:00 07/21/17 10:59 Phenazopyridine HCl (Pyridium Tab) 200 mg TID PRN PO 07/20/17 11:00 07/21/17 10:59
[2017-07-20 14:02] VITALS: BP 110/68; PULSE 76; TEMP 36.7; O2SAT 94
--- NOTE | 2017-07-20 14:19 | DIAGNOSTIC IMAGING REPORT ---
KUB CLINICAL HISTORY: 46 years-old Male presenting with L ureteral stone. TECHNIQUE: Single supine view of the abdomen was obtained. COMPARISON: CT from 07/19/2017. FINDINGS: Nonobstructive bowel gas pattern. No gross pneumoperitoneum. Allowing for bowel gas and stool, no calcifications to suggest nephrolithiasis. Left ureteral stent in place. The previously noted calculus at the level of the proximal left ureter is not visualized. Numerous pelvic phleboliths. Osseous structures normal. IMPRESSION: 1. Left ureteral stent in place. Previously noted left ureteral calculus not visualized. This may indicate passage. 2. No radiographically evident renal calculi. Electronically signed by: Joo Syed M.D. 07/20/2017 2:17 PM Dictated Date/Time: 07/20/2017 2:16 PM
[2017-07-20] MEDS ORDERED: TAMSULOSIN HCL 0.4 MG CAP PO SCH (21:00)
--- NOTE | 2017-07-21 21:11 | Discharge Summary ---
Discharge Summary Date of Service Jul 21, 2017. Discharge Summary Admission Date: Jul 20, 2017 at 00:25 Discharge Date: Jul 20, 2017 Discharge Disposition: Home Principal Diagnosis: left ureteral calculus OTHER ACUTE / SECONDARY DIAGNOSES: acute kidney injury hyperglycemia . Secondary Diagnoses/Problems: hypertension dyslipidemia . Procedures: IV fluids IV medications CT abdomen and pelvis Cystoscopy and left ureteral stent placement by Dr. Casanova on 07/20/17 . Consultations: Urology with Dr. Casanova. . Medication Reconciliation New Medications: Amlodipine (Norvasc) 5 Mg Tab 5 MG PO DAILY, #30 TAB 5 Refills Ciprofloxacin Hcl (Cipro) 500 Mg Tab 500 MG PO BID, #6 TAB Oxycodone/Acetaminophen 7.5MG/325MG (Percocet 7.5MG/325MG) Tab 1 TAB PO Q4 PRN for Pain, #20 TAB Phenazopyridine Hcl (Pyridium) 200 Mg Tab 200 MG PO TID PRN for Bladder pain, #30 TAB Continued Medications: Ascorbic Acid (Vitamin C) 1,000 Mg Tab 1000 MG PO DAILY Aspirin (Aspirin Ec) 81 Mg Tab 81 MG PO DAILY Hold until cleared by urology Atorvastatin (Lipitor) 20 Mg Tab 20 MG PO DAILY, TAB Cyanocobalamin (Vitamin B12) 1,000 Mcg Tab 1000 MCG PO DAILY Discontinued Medications: Lisinopril (Zestril) 20 Mg Tab 20 MG PO BID, TAB Admission Information HPI (per Admitting provider): Patient is a 46-year-old male with past medical history of hypertension, hyperlipidemia, former tobacco use and other problems presents with history of sudden onset of left flank pain which started at 8:30 PM today. He reports left flank pain is radiating to the left lower quadrant, sharp to crampy in nature, 9/10 intensity, associated with chills, 2 episodes of non bloody nausea and vomiting since this morning. Denies any aggravating and relieving factors. Patient also noticed cola colored urine 2 days ago which improved with increased water intake. Denies any history of kidney stones in the past. He also noticed decreased urinary . 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 CT demonstrated 8.5 mm left ureteral calculus with moderate hydronephrosis and mild perinephric infiltration. Received IV fluids, analgesics. Urology consulted. Cystoscopy with left ureteral stent placement performed by Dr. Casanova. ACUTE KIDNEY INJURY Serum creatinine on admission was 1.53. No history of chronic kidney disease. Acute kidney injury most likely secondary to left ureteral obstruction with hydronephrosis. Lisinopril discontinued. Advised to avoid nonsteroidal anti-inflammatory drugs. Follow. HYPERTENSION Lisinopril discontinued because of acute kidney injury. Discharged on amlodipine 5 mg daily. Follow and titrate therapy. HYPERGLYCEMIA Random glucose in ED was 224. No history of diabetes mellitus. Fasting blood sugar this morning 133. Hemoglobin A1c 7.4. Probably has diabetes mellitus type 2. Diet, exercise, weight loss, and follow-up with PCP recommended. VTE PROPHYLAXIS SCDs ordered. Ambulating. DISPOSITION Expected discharge to home. Primary care follow-up with Kali Pabon PA-C. Urology follow-up with Dr. Casanova. . Discharge Instructions Date of Service Jul 20, 2017. Admission Reason for Admission: Renal Colic Discharge Discharge Diagnosis / Problem: Left ureteral stone, intractable colic s/p L ureteral stent Discharge Goals Goal(s): Decrease discomfort, Improve function, Improve disease control, Therapeutic intervention Activity Recommendations Activity Limitations: as noted below Lifting Limitations: no more than 25 pounds, gradually increase as tolerated Exercise/Sports Limitations: rest today, gradually increase as tolerated May Resume Sexual Activity: after follow-up appointment Shower/Bathe: no limitations Driving or Machine Use: resume 1 day after discharge . Instructions / Follow-Up Instructions / Follow-Up Follow-up appointment with Dr. Derrell Casanova in [place] office July 28 at 10: 30 AM - you will be mailed new patient paperwork and appointment date. Call with questions. Current Hospital Diet Patient's current hospital diet: Discharge Diet Recommended Diet: Regular Diet (good fluid intake) Procedures Procedures Performed: Cystoscopy, left retrograde pyelography, left ureteral stent placement Pending Studies Studies pending at discharge: no Laboratory Results Hemoglobin A1c Test 07/20/17 07:06 Range/Units Estimated Average Glucose 166 mg/dl Hemoglobin A1c 7.4 H 4.5-5.6 % Medical Emergencies . Who to Call and When: Medical Emergencies: If at any time you feel your situation is an emergency, please call 911 immediately. . Non-Emergent Contact Non-Emergency issues call your: Urologist Call Non-Emergent contact if: you have a fever, temperature is above 101, your pain is not controlled, your pain is worsening, your pain is unusual for you, your pain is concerning you, you have any medication questions . . "Provider Documentation" section prepared by Jose Rafael Casanova. . [place] Drug Monitoring Program Search Results: patient reviewed within database, no issues identified . Additional Copies To Kali Pabon PA-C; Jose Rafael Casanova MD, Urology
== END 2017-07-20 14:55 | disposition home or self-care (01) | DRG 694 ==
LOC: C.EDB 21:32 → C.MSW 07-20 00:25 → ENRESERV 07-20 01:29
PROVIDERS: ADMIT Internal Medicine; ATTEND Hospitalist
PROC: BT17ZZZ Fluoroscopy of Left Ureter (ICD-10-PCS; principal; 2017-07-20 10:15)
PROC: 0T778DZ Dilation of Left Ureter with Intraluminal Device, Via Natural or Artificial Opening Endoscopic (ICD-10-PCS; principal; 2017-07-20 10:15)
DX: N13.2 Hydronephrosis with renal and ureteral calculous obstruction (principal); R73.09 Other abnormal glucose; D35.00 Benign neoplasm of unspecified adrenal gland; N28.1 Cyst of kidney, acquired; I10 Essential (primary) hypertension; E78.5 Hyperlipidemia, unspecified; Z79.899 Other long term (current) drug therapy; Z79.82 Long term (current) use of aspirin; Z87.891 Personal history of nicotine dependence; Z84.1 Family history of disorders of kidney and ureter; Z82.49 Family history of ischemic heart disease and other diseases of the circulatory system; Z83.79 Family history of other diseases of the digestive system

== ENCOUNTER → 2017-07-31 | Outpatient (CLI) | payer OTHER ==
[~2017-07-31] MED LIST: AMLO-110 PO; ASCO10003 PO; ASPI81TA28 PO; ATOR-22 PO; CIPR-255 PO; CYAN100020 PO; CZR25 PO; GLC5 PO; METF-384 PO; MULT-506 PO; NAPR1TAB9 PO; OXYC7.5T65 PO; PHEN-1043 PO; PHEN-775 PO
--- NOTE | 2017-07-31 13:08 | DIAGNOSTIC IMAGING REPORT ---
CHEST 2 VIEWS ROUTINE CLINICAL HISTORY: N20.0 Nephrolithiasis preoperative evaluation COMPARISON STUDY: No previous studies for comparison. FINDINGS: The bones soft tissues and hemidiaphragms are normal. The cardiomediastinal silhouette is normal. The lungs are clear. The pulmonary vasculature is normal. IMPRESSION: Negative chest. The above report was generated using voice recognition software. It may contain grammatical, syntax or spelling errors. Electronically signed by: Clemente Freedman M.D. 07/31/2017 1:07 PM Dictated Date/Time: 07/31/2017 1:05 PM
== END | disposition home or self-care (01) ==
LOC: C.LAB 12:30
PROVIDERS: ATTEND Urology
DX: N20.0 Calculus of kidney (principal)

== ENCOUNTER → 2017-08-04 | Day surgery (SDC) | payer OTHER ==
[2017-08-01 09:19] VITALS: Ht 167.6 cm; Wt 100.0 kg
[~2017-08-04] VITALS: Ht 167.6 cm; Wt 100.0 kg
[~2017-08-04] MED LIST changes: -CIPR-255 PO; +CIPROFLOXACIN 400MG / D5W IV SCH; +DEXAMETHASONE SOD INJ 4 MG/ML VIAL ONE; +FENTANYL CITRATE INJ 50 MCG/1 ML 2 ML VIAL ONE; +LACTATED RINGER'S 1000ML 1,000 ML IV SCH; +LIDOCAINE HCL 2% 2 ML VIAL (20MG/ML) ONE; +MIDAZOLAM HCL 1 MG/ML 2ML VIAL ONE; +ONDANSETRON INJ 2 MG/ML 2 ML VIAL ONE; +OXYCODONE/ACETAMINOPHEN 5-325 TAB PO PRN; -PHEN-775 PO; +PROPOFOL IV EMULSION 10 MG/ML 20 ML VIAL IV ONE
--- NOTE | 2017-08-04 07:51 | DIAGNOSTIC IMAGING REPORT ---
KUB HISTORY: Follow-up study in a patient with nephrolithiasis. Status post lithotripsy. N20.0 Nephrolithiasis COMPARISON: KUB 07/20/2017 FINDINGS: The bowel gas pattern is non-obstructive. Moderate stool volume of the right hemicolon. There is no organomegaly. Left ureteral stent is in place. There are at least 2 calculi along the proximal portion of the stent at the level of L3 measuring up to 4 mm. No additional nephrolithiasis. Multiple calcifications of the pelvis suggest phleboliths. No pneumoperitoneum or pneumatosis. No fracture. IMPRESSION: Left ureteral stent in satisfactory positioning. At least two calculi are seen along the proximal portion of the stent at the level of L3 measuring up to 4 mm. Electronically signed by: Boubacar Wilkinson M.D. 08/04/2017 7:50 AM Dictated Date/Time: 08/04/2017 7:47 AM
--- NOTE | 2017-08-04 09:10 | History & Physical Bridge Note ---
H&P Re-Evaluation Bridge Note: I have examined the patient, reviewed the History & Physical and in the interval since the performance of the History & Physical I have noted the following changes of clinical significance: No changes noted
--- NOTE | 2017-08-04 10:00 | Discharge Instructions ---
Discharge Instructions Date of Service Aug 04, 2017. Admission Reason for Admission: Stones Discharge Discharge Diagnosis / Problem: L Stone Discharge Goals Goal(s): Decrease discomfort, Improve function Activity Recommendations Activity Limitations: resume your previous activity Lifting Limitations: gradually increase as tolerated Exercise/Sports Limitations: gradually increase as tolerated . Instructions / Follow-Up Instructions / Follow-Up May have blood in urine. May have flank pain. May have discomfort. Call for any fevers or chills. Current Hospital Diet Patient's current hospital diet: Discharge Diet Recommended Diet: Regular Diet Procedures Procedures Performed: L EWSL Pending Studies Studies pending at discharge: no Laboratory Results Hemoglobin A1c Test 07/20/17 07:06 Range/Units Estimated Average Glucose 166 mg/dl Hemoglobin A1c 7.4 H 4.5-5.6 % Medical Emergencies . Who to Call and When: Medical Emergencies: If at any time you feel your situation is an emergency, please call 911 immediately. . Non-Emergent Contact Non-Emergency issues call your: Primary Care Provider, Urologist Call Non-Emergent contact if: you have a fever, temperature is above 100.5, temperature is above 101, temperature is above 101.5, your pain is not controlled, your pain is worsening, your pain is unusual for you . . "Provider Documentation" section prepared by Leonides Mckeon. .
--- NOTE | 2017-08-04 10:16 | [facility] Operative Report ---
Operative Report Operative Date Aug 04, 2017. Pre-Operative Diagnosis Left Ureteral Stone Post-Operative Diagnosis Same Procedure(s) Performed L KIKE Mckeon Estimated Blood Loss None Findings Left Proximal stone with stent. Drains None Anesthesia Type General Complication(s) none Disposition Recovery Room / PACU Indications Left obstruction from stone. Risks and benefits discussed. Stent placed previous to procedure. Description of Procedure Patient was consented and brought back to the operating room. Patient was placed under anesthesia in the supine position. Patient was prepped and draped in the regular sterile fashion. A time out was completed. With the time out completed, The patient was assessed with fluoroscopy. The stone was identified and position was triangulated. At this point, the shock waves commenced. The stone was monitored throughout the process with fluoroscopy to assess progression and maintain position. The stone was pulverized with 2500 shocks at a maximum voltage of 5 with a total fluoroscopic time of 2.11. With the stone treated, the procedure ended. The patient was cleaned, aroused from anesthesia, and transferred to the pacu in stable condition having tolerated the procedure well with no complications. I was present and participated in all aspects of the procedure. The patient will be monitored in the PACU until transferred. I attest to the content of the Intraoperative Record and any orders documented therein. Any exceptions are noted below.
[2017-08-04 11:00] VITALS: TEMP 36.4
[2017-08-04 11:19] VITALS: BP 115/76; PULSE 62; O2SAT 100
--- NOTE | 2017-08-04 11:26 | Anesthesia Progress Nt - [facility] ---
Anesthesia Post Op Note Date & Time Aug 04, 2017 at 11:25 Vital Signs Pain Intensity: 0 Vital Signs Past 12 Hours Date Time Temp Pulse Resp B/P (MAP) Pulse Ox O2 Delivery O2 Flow Rate FiO2 08/04/17 11:19 62 16 115/76 (89) 100 Room Air 08/04/17 11:00 36.4 61 16 92/54 (67) 95 Room Air 08/04/17 10:52 36.4 08/04/17 10:51 109/68 (82) 08/04/17 10:47 62 14 93 08/04/17 10:47 62 14 08/04/17 10:46 113/75 (84) 08/04/17 10:42 66 12 98 08/04/17 10:42 65 12 08/04/17 10:41 102/66 (72) 08/04/17 10:40 Room Air 08/04/17 10:37 75 12 97 08/04/17 10:37 75 12 08/04/17 10:36 106/68 (76) 08/04/17 10:32 78 17 08/04/17 10:32 77 17 94 08/04/17 10:31 104/62 (72) 08/04/17 10:27 79 19 96 08/04/17 10:27 78 19 08/04/17 10:26 104/57 (67) 08/04/17 10:25 110/61 (78) 08/04/17 10:23 95/61 (69) 08/04/17 10:15 36.6 73 12 95/61 94 Diffusion Mask 5 08/04/17 08:25 36.7 73 20 131/84 (100) 96 Room Air Notes Mental Status: alert / awake / arousable, participated in evaluation Pt Amnestic to Procedure: Yes Nausea / Vomiting: adequately controlled Pain: adequately controlled Airway Patency, RR, SpO2: stable & adequate BP & HR: stable & adequate Hydration State: stable & adequate Anesthetic Complications: no major complications apparent
== END | disposition home or self-care (01) ==
LOC: X.SURG 07:47
PROVIDERS: ATTEND Urology
DX: N20.1 Calculus of ureter (principal); E11.9 Type 2 diabetes mellitus without complications; I10 Essential (primary) hypertension; E78.00 Pure hypercholesterolemia, unspecified; Z83.3 Family history of diabetes mellitus; Z82.49 Family history of ischemic heart disease and other diseases of the circulatory system; Z84.1 Family history of disorders of kidney and ureter; N40.0 Benign prostatic hyperplasia without lower urinary tract symptoms; M19.90 Unspecified osteoarthritis, unspecified site; E66.9 Obesity, unspecified; F17.220 Nicotine dependence, chewing tobacco, uncomplicated

== ENCOUNTER → 2017-08-16 | Outpatient (CLI) | payer OTHER ==
[~2017-08-16] MED LIST changes: -ASPI81TA28 PO; -CIPROFLOXACIN 400MG / D5W IV SCH; -DEXAMETHASONE SOD INJ 4 MG/ML VIAL ONE; -FENTANYL CITRATE INJ 50 MCG/1 ML 2 ML VIAL ONE; -LACTATED RINGER'S 1000ML 1,000 ML IV SCH; -LIDOCAINE HCL 2% 2 ML VIAL (20MG/ML) ONE; -MIDAZOLAM HCL 1 MG/ML 2ML VIAL ONE; -NAPR1TAB9 PO; -ONDANSETRON INJ 2 MG/ML 2 ML VIAL ONE; -OXYCODONE/ACETAMINOPHEN 5-325 TAB PO PRN; -PROPOFOL IV EMULSION 10 MG/ML 20 ML VIAL IV ONE
[2017-08-16 15:10] LABS: BLOOD UREA NITROGEN 13 mg/dl (7-18); CREATININE 0.95 mg/dl (0.60-1.40)
== END | disposition home or self-care (01) ==
LOC: C.LAB 12:43
PROVIDERS: ATTEND Urology
DX: N20.0 Calculus of kidney (principal); E11.9 Type 2 diabetes mellitus without complications

== ENCOUNTER → 2017-08-16 | Outpatient (CLI) | payer OTHER ==
--- NOTE | 2017-08-16 11:46 | DIAGNOSTIC IMAGING REPORT ---
KUB HISTORY: Follow-up study in a patient with nephrolithiasis NEPHROLITHIASIS COMPARISON: KUB 08/04/2017 FINDINGS: The bowel gas pattern is non-obstructive. There is no organomegaly. Left ureteral stent appears to be in stable satisfactory positioning. There are at least 2 calculi along the proximal proximal of the left ureteral stent measuring up to 4 mm at the level of inferior portion of the L3 vertebral body which appears unchanged from comparison. No additional ureteral calculi or nephrolithiasis. Round calcifications of the pelvis suggest phleboliths. No pneumoperitoneum or pneumatosis. No fracture. IMPRESSION: 1. Stable positioning of left ureteral stent. 2. At least two calculi are again noted along the proximal portion of the left ureteral stent at the level of L3 measuring up to 4 mm. Electronically signed by: Boubacar Wilkinson M.D. 08/16/2017 11:45 AM Dictated Date/Time: 08/16/2017 11:43 AM
== END | disposition home or self-care (01) ==
LOC: C.RAD 10:50
PROVIDERS: ATTEND Urology
DX: N20.1 Calculus of ureter (principal)